=== PATIENT | male | born 1945 | race African-American/Black ===

== ENCOUNTER 2016-10-28 12:46 | Inpatient (IN) | payer MEDICARE, MEDICAID ==
[~2016-10-28] VITALS: Ht 175.3 cm; Wt 63.5 kg
[2016-10-28] MEDS ORDERED: Phenazopyridine 200mg tab ORAL ONE (13:15)
[2016-10-28] MEDS ORDERED: fentaNYL 100 mcg/2 mL IV ONE (13:15)
[2016-10-28 13:51] LABS: BASOPHILS % (AUTO) 0.7 % (0.0-2.0); EOSINOPHILS % (AUTO) 0.1 % (0.0-3.0); MEAN CORPUSCULAR HEMOGLOBIN 29.8 PG (27.0-31.0); MEAN CORPUSCULAR HGB CONC 32.7 G/DL (32.0-36.0); MEAN CORPUSCULAR VOLUME 91 FL (80-99); MEAN PLATELET VOLUME 9.5 FL (6.5-10.1); MONOCYTES % (AUTO) 10.5 % (1.0-10.0); NEUTROPHILS % (AUTO) 74.7 % (45.0-75.0); PLATELET COUNT 136 K/UL (150-450); RED BLOOD COUNT 3.69 M/UL (4.70-6.10); RED CELL DISTRIBUTION WIDTH 11.9 % (11.6-14.8); WHITE BLOOD COUNT 17.4 K/UL (4.8-10.8)
--- NOTE | 2016-10-28 13:58 | Emergency Room Report ---
History of Present Illness General Chief Complaint: Generalized Weakness Source: Patient Present Illness HPI The patient was recently started on insulin. He's not been eating and has not had an appetite he's been losing weight. Glucose has been out of control. Increased weakness with polyuria and polydipsia. In addition he has pain in his suprapubic area 7/10, constant dull pressure. He states that he has dysuria and also has pain when he moves about. He has a history of prostate cancer which had been treated with medication which was recently stopped (seemingly because cancer was under control). Scheduled to see urologist/oncologist soon. PSA fluctuating. Patient fell several days ago bruising and swelling his right elbow. Distal pain there. He taking Xarelt before that and because of bruising it was stopped. No head trauma. No xrays done. No chest pain, dyspnea, sore throat, cough. Allergies: Coded Allergies: ASPIRIN (Verified Allergy, Unknown, throws up, 10/28/16) Patient History Past Medical History: see triage record, other - prostate CA Social History: Reports: smoking Social History Narrative at home Reviewed Nursing Documentation: PMH: Agreed, PSxH: Agreed Nursing Documentation-PMH Past Medical History: No History, Except For Hx Hypertension: Yes Hx Diabetes: Yes Hx Cancer: Yes - Prostate CA Hx Cerebrovascular Accident: Yes - right eye blindness Review of Systems All Other Systems: negative except mentioned in HPI Physical Exam Vital Signs Date Time Temp Pulse Resp B/P Pulse Ox O2 Delivery O2 Flow Rate FiO2 10/28/16 13:01 98.1 95 22 109/79 100 Room Air Sp02 EP Interpretation: reviewed, normal General Appearance: well appearing, no apparent distress, GCS 15 Head: normocephalic Eyes: bilateral eye normal inspection ENT: moist mucus membranes Neck: supple Respiratory: lungs clear, normal breath sounds Cardiovascular #1: regular rate, rhythm Cardiovascular #2: 2+ radial (R) Gastrointestinal: normal bowel sounds, soft, no mass, non-distended, no guarding, no rebound, tenderness - suprapubic, no masses felt (bladder not palpated) Genitourinary: penis normal Musculoskeletal: back normal, gait/station normal, normal range of motion, swelling - R olecronon bursa Neurologic: alert, oriented x3, grossly normal Psychiatric: depressed affect Skin: warm/dry, other - ecchymoses R arm/elbow Medical Decision Making Diagnostic Impression: Primary Impression: Hyperglycemia Additional Impressions: Leukocytosis Qualified Codes: D72.829 - Elevated white blood cell count, unspecified Failure to thrive Qualified Codes: R62.7 - Adult failure to thrive Falling episodes Olecranon bursitis Qualified Codes: M70.21 - Olecranon bursitis, right elbow UTI (urinary tract infection) Qualified Codes: N30.00 - Acute cystitis without hematuria ER Course Patient presents with elevated glucose. Ddx; DKA, hyperglycemia, poor insulin compliance, occult infection, cardiac cause. Emergent evaluation with EKG, labs , CXR. Suprapubic pain needs assessment. Olecrinon could be bursitis of hematoma. Doubt cellulitis. EKG, CXR unremarkable. Not DKA. Leukocytosis, suspect occult infection - with pain suprapubic area, suspect UTI. Attempt pass layne. No urine output. Bladder scanner. Await repeat accucheck for insulin. Insulin bolus given. Repeat accucheck 147. Continue hydration. Antibiotics begun after discussion with Dr. Mera. Bladde scanner with volume = 127 ml (layne in place, no drainage - concern over proper placement). Admit tele Dr. Mera. Laboratory Tests Test 10/28/16 13:25 10/28/16 19:00 White Blood Count 17.4 K/UL (4.8-10.8) H Red Blood Count 3.69 M/UL (4.70-6.10) L Hemoglobin 11.0 G/DL (14.2-18.0) L Hematocrit 33.7 % (42.0-52.0) L Mean Corpuscular Volume 91 FL (80-99) Mean Corpuscular Hemoglobin 29.8 PG (27.0-31.0) Mean Corpuscular Hemoglobin Concent 32.7 G/DL (32.0-36.0) Red Cell Distribution Width 11.9 % (11.6-14.8) Platelet Count 136 K/UL (150-450) L Mean Platelet Volume 9.5 FL (6.5-10.1) Neutrophils (%) (Auto) 74.7 % (45.0-75.0) Lymphocytes (%) (Auto) 14.0 % (20.0-45.0) L Monocytes (%) (Auto) 10.5 % (1.0-10.0) H Eosinophils (%) (Auto) 0.1 % (0.0-3.0) Basophils (%) (Auto) 0.7 % (0.0-2.0) Prothrombin Time 11.4 SEC (9.30-11.50) Prothrombin Time INR 1.1 (0.9-1.1) PTT 26 SEC (23-33) Sodium Level 130 mEQ/L (135-145) L Potassium Level 3.3 mEQ/L (3.4-4.9) L Chloride Level 89 mEQ/L (98-107) L Carbon Dioxide Level 17 mEQ/L (20-30) L Anion Gap 24 (5-15) H Blood Urea Nitrogen 5 mg/dL (7-23) L Creatinine 0.8 mg/dL (0.7-1.2) Estimate Glomerular Filtration Rate > 60 mL/min (>60) Glucose Level 388 mg/dL (74-106) H Calcium Level 8.9 mg/dL (8.6-10.2) Magnesium Level 1.3 mg/dL (1.7-2.5) L Total Bilirubin 2.3 mg/dL (0.0-1.2) H Direct Bilirubin 1.1 mg/dL (0.1-0.3) H Aspartate Amino Transferase (AST) 49 U/L (5-40) H Alanine Aminotransferase (ALT) 19 U/L (3-41) Alkaline Phosphatase 77 U/L (40-129) Total Protein 6.9 g/dL (6.6-8.7) Albumin 2.9 g/dL (3.5-5.2) L Globulin 4.0 g/dL Albumin/Globulin Ratio 0.7 (1.0-2.7) L Lipase 61 U/L (< 60) H Acetone Level Negative (NEGATIVE) Urine Color [place] Urine Appearance Slightly cloudy Urine pH 5 (4.5-8.0) Urine Specific [place] 1.015 (1.005-1.035) Urine Protein 3+ (NEGATIVE) H Urine Glucose (UA) 3+ (NEGATIVE) H Urine Ketones 3+ (NEGATIVE) H Urine Occult Blood 3+ (NEGATIVE) H Urine Nitrite Positive (NEGATIVE) H Urine Bilirubin 2+ (NEGATIVE) H Urine Ictotest Negative Urine Urobilinogen 8 MG/DL (0.0-1.0) H Urine Leukocyte Esterase 3+ (NEGATIVE) H Urine RBC 5-10 /HPF (0 - 0) H Urine WBC 10-15 /HPF (0 - 0) H Urine Squamous Epithelial Cells None /LPF (NONE/OCC) Urine Amorphous Sediment Few /LPF (NONE) H Urine Bacteria Moderate /HPF (NONE) H Urine Yeast Few /HPF (NONE) H EKG Diagnostic Results Rate: normal Rhythm: NSR ST Segments: no acute changes Rhythm Strip Diag. Results EP Interpretation: yes Rhythm: NSR, no PVC's, no ectopy Chest X-Ray Diagnostic Results EP Interpretation: Yes Findings: no consolidation, no effusion, no pneumothorax, no acute cardiopulmonary disease, other - increased R hilum Number of Views: 1 Last Vital Signs Date Time Temp Pulse Resp B/P Pulse Ox O2 Delivery O2 Flow Rate FiO2 10/29/16 04:00 74 10/29/16 04:00 97.4 19 98/61 96 Room Air Status: improved Disposition: ADMITTED INPATIENT Condition: Serious Referrals: ASHLEY MERA (PCP) Dustin Adams M.D. October 28, 2016 13:58
[2016-10-28 14:05] LABS: INR 1.1 (0.9-1.1); PROTHROMBIN TIME 11.4 SEC (9.30-11.50)
--- NOTE | 2016-10-28 14:07 | Diagnostic Imaging Report ---
Indication: TRAUMA, pain Technique: One view of the chest Comparison: none Findings: There is slight blunting of left costophrenic sulcus. SPECT is on the basis of some tenting of the diaphragm but small effusion not completely excludable. Lungs and pleural spaces are otherwise clear. Heart size is normal. There is questionably some irregularity of one or more lower left lateral ribs Impression: Doubt acute pulmonary process. Cannot rule out small left-sided pleural effusion Questional slight irregularity of left lower lateral ribs, fracture not excludable.: Clinical findings
--- NOTE | 2016-10-28 14:09 | Diagnostic Imaging Report ---
Indications:TRAUMA Technique: Three or 4 views of the right elbow Comparison: None Findings:There is a large area of soft tissue swelling dorsally on the elbow. No definite acute fracture. No dislocation. No definite effusion. Impression:Evidence of subcutaneous soft tissue injury. No acute bony trauma
[2016-10-28 14:11] LABS: ALANINE AMINOTRANSFERASE 19 U/L (3-41); ALBUMIN/GLOBULIN RATIO 0.7 (1.0-2.7); ANION GAP 24 (5-15); ASPARTATE AMINO TRANSFERASE 49 U/L (5-40); CALCIUM 8.9 mg/dL (8.6-10.2); CARBON DIOXIDE 17 mEQ/L (20-30); CHLORIDE 89 mEQ/L (98-107); CREATININE 0.8 mg/dL (0.7-1.2); GLOMERULAR FILTRATION RATE > 60 mL/min (>60); HEMOLYSIS 14; LIPASE 61 U/L (< 60); MAGNESIUM 1.3 mg/dL (1.7-2.5); POTASSIUM 3.3 mEQ/L (3.4-4.9); SODIUM 130 mEQ/L (135-145); TOTAL PROTEIN 6.9 g/dL (6.6-8.7)
[2016-10-28] MEDS ORDERED: BRIMONIDINE TART5 ML BOTH EYES ×2 (14:12→19:00)
[2016-10-28] MEDS ORDERED: OMEPRAZOLE20 M2 ORAL (14:12)
[2016-10-28] MEDS ORDERED: XALATAN2.5 ML LEFT EYE (14:12)
[2016-10-28] MEDS ORDERED: ZOCOR20 M1 ORAL (14:12)
[2016-10-28] MEDS ORDERED: ZOLPIDEM TARTRA10 MG ORAL ×2 (14:12→19:07)
[2016-10-28] MEDS ORDERED: XARELTO10 MG ORAL (14:12)
[2016-10-28] MEDS ORDERED: LORAZEPAM1 MG ORAL ×2 (14:12→19:07)
[2016-10-28] MEDS ORDERED: AMLODIPINE BESY10 MG ORAL (14:12)
[2016-10-28] MEDS ORDERED: TRUSOPT10 ML BOTH EYES ×2 (14:12→19:02)
[2016-10-28 14:36] LABS: BILIRUBIN,DIRECT 1.1 mg/dL (0.1-0.3)
[2016-10-28 14:47] VITALS: BP 101/68
[2016-10-28] MEDS ORDERED: Piperacillin/Tazobactam 3.375 GM in NS 110 ML IVPB ONE (15:45)
[2016-10-28] MEDS ORDERED: HUMULIN R100 UNIT/1 SUBQ (15:56)
[2016-10-28] MEDS ORDERED: KCl 10% 40mEq/30ml liquid ORAL STA (15:59)
[2016-10-28] MEDS ORDERED: Zosyn 3.375gm inj ONE (16:00)
[2016-10-28 16:28] VITALS: BP 112/61
[2016-10-28] MEDS ORDERED: Milk of Magnesia 30ml Ud ORAL PRN (18:00)
[2016-10-28] MEDS: NS w/KCl 20mEq 1,000 ML IV SCH (18:39)
[2016-10-28] MEDS ORDERED: BRIMONIDINE TART5 ML (18:41)
[2016-10-28] MEDS ORDERED: TRUSOPT10 ML (18:42)
[2016-10-28] MEDS ORDERED: LATANOPROST2.5 ML (18:43)
[2016-10-28 18:50] VITALS: BP 98/59
[2016-10-28] MEDS ORDERED: VITAMIN D250000 UNI1 ORAL (19:03)
[2016-10-28] MEDS ORDERED: LATANOPROST2.5 ML LEFT EYE (19:03)
[2016-10-28] MEDS ORDERED: METFORMIN HCL500 M1 ORAL (19:04)
[2016-10-28] MEDS ORDERED: TAMSULOSIN HCL0.4 MG ORAL (19:05)
[2016-10-28] MEDS ORDERED: XARELTO20 MG ORAL (19:10)
[2016-10-28] MEDS ORDERED: QVAR7.3 GM INH (19:10)
[2016-10-28 20:00] VITALS: BP 115/65
[2016-10-28] MEDS: HYDROmorphone 1mg/ml Carpuject IVP PRN (20:22)
[2016-10-28] MEDS: Zolpidem 5mg tab ORAL PRN (21:35)
[2016-10-28] MEDS: Cosopt Opth Soln 10 mL Btl BOTH EYES SCH (21:37)
[2016-10-28] MEDS: NovoLOG Insulin Flexpen SUBQ SCH (21:39)
[2016-10-28] MEDS: Brimonidine 0.2% Opth Sol BOTH EYES SCH (21:43)
[2016-10-28] MEDS ORDERED: Piperacillin/Tazobactam 3.375 GM in D5W 110 ML IVPB SCH (22:00)
[2016-10-28 22:01] LABS: APPEARANCE,URINE SLIGHTLY CLOUDY; KETONES,URINE 3+ (NEGATIVE); LEUKOCYTE ESTERASE ,URINE 3+ (NEGATIVE); NITRITE,URINE POSITIVE (NEGATIVE); PH,URINE 5 (4.5-8.0); PROTEIN,URINE 3+ (NEGATIVE); UROBILINOGEN,URINE 8 MG/DL (0.0-1.0)
[2016-10-28 22:07] LABS: ICTOTEST NEGATIVE
[2016-10-28 22:29] LABS: AMORPHOUS SEDIMENT,UR FEW /LPF; BACTERIA,URINE MODERATE /HPF
[2016-10-28 22:30] LABS: YEAST,URINE FEW /HPF
--- NOTE | 2016-10-28 23:49 | Consultation ---
DATE OF CONSULTATION: 10/28/2016 CARDIOLOGY CONSULTATION REQUESTING PHYSICIAN: Erick Rose M.D. REASON FOR CONSULTATION: Hypotension. HISTORY OF PRESENT ILLNESS: This is a 69-year-old white male with history of insulin-requiring diabetes mellitus. He has had several days of declining appetite, weight loss, and suprapubic pain. He has had dysuria. He has been weak, lethargic. He has been dizzy. He has fallen several times. He injured his right elbow. He was seen in Dr. Rose's office today and concern prompted hospitalization. The patient was seen in the emergency room and several abnormal studies have resulted in hospitalization. I have been asked to address his cardiovascular status. PAST MEDICAL HISTORY: 1. Cerebrovascular disease with history of cerebrovascular accident. 2. Right eye blindness. 3. Prostate cancer. 4. Insulin-requiring diabetes mellitus. 5. Hypertension with hypertensive heart disease. 6. Coronary artery disease. 7. Paroxysmal atrial fibrillation. 8. History of DVT. MEDICATIONS: Prior to admission, reviewed and reconciled. ALLERGIES: Aspirin. SOCIAL HISTORY: No active smoking, alcohol, or substance abuse. FAMILY HISTORY: Noncontributory. REVIEW OF SYSTEMS: No fevers or chills. He is blind in the right eye. He is hard of hearing. No cough or sputum production. He has a history of coronary artery disease. He has had atrial fibrillation and he had DVT in the past. He has had a prior stroke. He has not noted any change in bowel habits. He does have dysuria. There is a history of rostate cancer. There is no history of thyroid disorder. He was recently started on insulin due to uncontrolled blood glucose levels. He has been on anti-lipid therapy in the past. PHYSICAL EXAMINATION: VITAL SIGNS: Blood pressure 109/79, pulse 95, respirations 22, and afebrile. HEENT: Normocephalic and atraumatic. Conjunctivae are pink. Oropharynx clear. Mucous membrane is dry. NECK: Supple. LUNGS: With coarse breath sounds. No wheezing. CARDIAC: Regular rhythm and rate. Normal S1 and S2 with a fourth heart sound. ABDOMEN: Soft, mildly tender in the suprapubic region. No guarding or rebound. EXTREMITIES: No edema. EKG sinus rhythm, no acute abnormalities. Chest x-ray with fullness in the right hilar area. Otherwise, no acute process. LABORATORY DATA: Sodium 130, potassium 3.3, chloride 89, bicarbonate 17, BUN 5, creatinine 0.8. Magnesium 1.3. Albumin 2.9. Lipase is 61, white count 17.4, and hemoglobin 11. IMPRESSION: 1. Sepsis, probable urinary tract infection. 2. Hypovolemia, dehydration, and shock. 3. Hyponatremia. 4. Leukocytosis. 5. Hypokalemia. 6. Insulin-requiring diabetes out of control. 7. Hypomagnesemia. 8. Moderate protein-calorie malnutrition. PLAN: 1. Panculture. 2. Broad-spectrum antibiotics. 3. Isotonic hydration. 4. Potassium replacement. 5. IV magnesium replacement. 6. Nutritional support with protein supplement. 7. DVT prophylaxis. 8. Check urine studies. 9. Continue full anticoagulation with Rivaroxaban. 10. Titrate cardiovascular regimen based on clinical parameters. 11. We will hold parameters in place for low range blood pressure readings. Dustin Henao M.D. DR: Louann JOB#: [id number] CC:
[2016-10-29] VITALS: BP 101/67
[2016-10-29] MEDS: HYDROmorphone 1mg/ml Carpuject IVP PRN ×5 (01:52→21:19)
[2016-10-29] MEDS: Piperacillin/Tazobactam 3.375 GM in D5W 110 ML IVPB SCH ×3 (03:13→17:16)
[2016-10-29 04:00] VITALS: BP 98/61
[2016-10-29] MEDS: NS w/KCl 20mEq 1,000 ML IV SCH ×2 (05:00→14:47)
[2016-10-29] MEDS: Brimonidine 0.2% Opth Sol BOTH EYES SCH ×3 (06:00→22:00)
[2016-10-29] MEDS: NovoLOG Insulin Flexpen SUBQ SCH ×4 (06:23→21:00)
[2016-10-29] MEDS ORDERED: NovoLOG Insulin Flexpen SUBQ SCH (06:30)
[2016-10-29 08:00] VITALS: BP 115/58
[2016-10-29 08:14] LABS: BASOPHILS % (AUTO) 0.8 % (0.0-2.0); EOSINOPHILS % (AUTO) 0.3 % (0.0-3.0); LYMPHOCYTES % (AUTO) 10.7 % (20.0-45.0); MEAN CORPUSCULAR HEMOGLOBIN 32.9 PG (27.0-31.0); MEAN CORPUSCULAR HGB CONC 34.8 G/DL (32.0-36.0); MEAN CORPUSCULAR VOLUME 95 FL (80-99); MEAN PLATELET VOLUME 9.3 FL (6.5-10.1); MONOCYTES % (AUTO) 7.7 % (1.0-10.0); NEUTROPHILS % (AUTO) 80.5 % (45.0-75.0); PLATELET COUNT 121 K/UL (150-450); RED BLOOD COUNT 2.97 M/UL (4.70-6.10); RED CELL DISTRIBUTION WIDTH 12.2 % (11.6-14.8); WHITE BLOOD COUNT 13.4 K/UL (4.8-10.8)
[2016-10-29 08:24] LABS: ALANINE AMINOTRANSFERASE 16 U/L (3-41); ALBUMIN/GLOBULIN RATIO 0.7 (1.0-2.7); ANION GAP 18 (5-15); ASPARTATE AMINO TRANSFERASE 43 U/L (5-40); CALCIUM 8.2 mg/dL (8.6-10.2); CARBON DIOXIDE 19 mEQ/L (20-30); CHLORIDE 97 mEQ/L (98-107); CREATININE 0.6 mg/dL (0.7-1.2); GLOMERULAR FILTRATION RATE > 60 mL/min (>60); HEMOLYSIS 3; MAGNESIUM 2.5 mg/dL (1.7-2.5); POTASSIUM 2.8 mEQ/L (3.4-4.9); SODIUM 134 mEQ/L (135-145); TOTAL PROTEIN 5.9 g/dL (6.6-8.7)
[2016-10-29] MEDS: Cosopt Opth Soln 10 mL Btl BOTH EYES SCH ×2 (08:58→17:16)
[2016-10-29] MEDS: Levemir Flexpen SUBQ SCH ×2 (11:23→21:17)
[2016-10-29 12:00] VITALS: BP 109/62
[2016-10-29 14:17] LABS: TROPONIN I < 0.30 ng/mL (<=0.30)
[2016-10-29 16:00] VITALS: BP 101/62
--- NOTE | 2016-10-29 16:01 | Cardiology Report ---
APPROVED REPORT EKG Measurement Heart [id number] Normal sinus rhythm Septal infarct, age undetermined Abnormal ECG
--- NOTE | 2016-10-29 16:58 | History and Physical Report ---
DATE OF ADMISSION: 10/28/2016 CHIEF COMPLAINT: Diabetes out of control and recent stroke. HISTORY OF PRESENT ILLNESS: The patient is a pleasant 71-year-old male. He has a history of cholecystectomy, hypertension, coronary artery disease, diabetes, stroke, DVT, and paroxysmal atrial fibrillation. He presented to the office with diabetes out of control with sugars in the 400 range. He was weak, dizzy, and dehydrated. He was also seen at [facility] where he was recently diagnosed with a small stroke in the right eye. In light of the patient's poorly controlled sugars, he is now admitted for further evaluation and care. He has had some dysuria and shortness of breath as well as some mild chest pain. PAST MEDICAL HISTORY: As above. PAST SURGICAL HISTORY: As above. CURRENT MEDICATIONS: Reconciled and reviewed. ALLERGIES: Aspirin. FAMILY HISTORY: Noncontributory. SOCIAL HISTORY: Negative for ethanol or drugs. The patient does smoke. PHYSICAL EXAMINATION: VITAL SIGNS: Temperature 98.2, blood pressure 98/59, pulse of 88, and respirations 20. GENERAL: The patient is a well-developed male, in no apparent distress. NECK: Supple. HEART: Regular rate and rhythm. LUNGS: Clear. ABDOMEN: Soft. EXTREMITIES: No clubbing, cyanosis, or edema. LABORATORY DATA: Labs show sodium 130, potassium 3.3, chloride 89, bicarbonate 17, BUN of 5, glucose of 388. Magnesium of 1.3. Total bilirubin 2.3. Natriuretic peptide level is 145. UA showed 10 to 15 WBCs. ASSESSMENT: This is a pleasant male who is admitted with multiple problems including, 1. Diabetes out of control, possible mild diabetic ketoacidosis. 2. Hypotension. 3. Dehydration. 4. Acute renal failure. 5. Possible sepsis. 6. Urinary tract infection. 7. Deep venous thrombosis. 8. Atrial fibrillation. 9. Hypertension. 10. Recent stroke. PLAN: 1. IV hydration. 2. Titrate insulin regimen. 3. Empiric antibiotic therapy for UTI. 4. Cardiology and Neurology consultations for workup of the patient's recent stroke. 5. Check a duplex on the legs. 6. Monitor on telemetry for arrhythmia for 24 to 48 hours. Erick Rose M.D. DR: CHINMAY JOB#: [id number] CC:
[2016-10-29] MEDS: Xarelto 10mg tab ORAL SCH (17:16)
[2016-10-29] MEDS ORDERED: NS 275ml ONE (18:10)
[2016-10-29] MEDS ORDERED: Tubing IV Secondary IV ONE (18:10)
[2016-10-29 20:00] VITALS: BP 100/61
[2016-10-30] VITALS: BP 101/63
[2016-10-30] MEDS: Piperacillin/Tazobactam 3.375 GM in D5W 110 ML IVPB SCH ×3 (01:12→17:35)
[2016-10-30] MEDS: NS w/KCl 20mEq 1,000 ML IV SCH ×2 (01:12→11:12)
--- NOTE | 2016-10-30 02:38 | Progress Note ---
DATE: 10/29/2016 CARDIOLOGY PROGRESS NOTE: SUBJECTIVE: The patient is more alert. He continues to be withdrawn and weak however. His appetite is slightly better. He continues to have frequency. OBJECTIVE: VITAL SIGNS: Blood pressure is 115/58, pulse rate 73, respiratory rate 17, and afebrile. NECK: Supple. LUNGS: Clear. CARDIAC: Regular rhythm and rate. Normal S1 and S2 with a fourth heart sound. ABDOMEN: Soft. EXTREMITIES: No edema. LABORATORY DATA: White count is 13.4 and hemoglobin 9.8. Troponin is negative. Pro-natriuretic peptide is 145. Albumin is 2.5. Sodium is 134, potassium 3.8, bicarbonate 19, BUN 3, and creatinine 0.6. IMPRESSION: 1. Uncontrolled diabetes. 2. Metabolic acidosis. 3. Shock. 4. Hypovolemia. 5. Sepsis. 6. Urinary tract infection. 7. Deep venous thrombosis. 8. Paroxysmal atrial fibrillation. 9. Toxic and metabolic encephalopathy. 10. History of hypertension. 11. Ischemic cardiomyopathy. 12. Paroxysmal ventricular ectopy. PLAN: 1. Hydration. 2. Antibiotics. 3. Insulin coverage. 4. Hold antihypertensive. 5. Deep venous thrombosis and stress ulcer prophylaxis. 6. Full anticoagulation with Xarelto. Dustin Henao M.D. DR: Bebe JOB#: [id number] CC:
[2016-10-30] MEDS: HYDROmorphone 1mg/ml Carpuject IVP PRN ×3 (03:33→20:32)
[2016-10-30 04:04] VITALS: BP 98/64
[2016-10-30] MEDS: Brimonidine 0.2% Opth Sol BOTH EYES SCH ×3 (06:00→22:13)
[2016-10-30] MEDS: NovoLOG Insulin Flexpen SUBQ SCH ×4 (06:30→22:11)
[2016-10-30 08:10] LABS: BASOPHILS % (AUTO) 0.3 % (0.0-2.0); EOSINOPHILS % (AUTO) 0.3 % (0.0-3.0); LYMPHOCYTES % (AUTO) 17.9 % (20.0-45.0); MEAN CORPUSCULAR HEMOGLOBIN 30.3 PG (27.0-31.0); MEAN CORPUSCULAR HGB CONC 32.8 G/DL (32.0-36.0); MEAN CORPUSCULAR VOLUME 93 FL (80-99); MEAN PLATELET VOLUME 8.3 FL (6.5-10.1); MONOCYTES % (AUTO) 8.7 % (1.0-10.0); NEUTROPHILS % (AUTO) 72.8 % (45.0-75.0); PLATELET COUNT 154 K/UL (150-450); RED BLOOD COUNT 3.05 M/UL (4.70-6.10); RED CELL DISTRIBUTION WIDTH 12.4 % (11.6-14.8); WHITE BLOOD COUNT 12.2 K/UL (4.8-10.8)
[2016-10-30 08:29] LABS: ALANINE AMINOTRANSFERASE 16 U/L (3-41); ALBUMIN/GLOBULIN RATIO 0.6 (1.0-2.7); ANION GAP 16 (5-15); ASPARTATE AMINO TRANSFERASE 50 U/L (5-40); CARBON DIOXIDE 19 mEQ/L (20-30); CHLORIDE 102 mEQ/L (98-107); CREATININE 0.6 mg/dL (0.7-1.2); GLOMERULAR FILTRATION RATE > 60 mL/min (>60); HEMOLYSIS 3; MAGNESIUM 1.8 mg/dL (1.7-2.5); POTASSIUM 3.6 mEQ/L (3.4-4.9); SODIUM 137 mEQ/L (135-145); TOTAL PROTEIN 5.8 g/dL (6.6-8.7)
[2016-10-30 08:44] VITALS: BP 95/57
[2016-10-30 09:08] LABS: BILIRUBIN,DIRECT 0.6 mg/dL (0.1-0.3)
[2016-10-30] MEDS: Cosopt Opth Soln 10 mL Btl BOTH EYES SCH ×2 (09:15→17:36)
[2016-10-30] MEDS: Levemir Flexpen SUBQ SCH ×2 (09:19→22:12)
[2016-10-30 12:04] VITALS: BP 99/58
--- NOTE | 2016-10-30 12:37 | Diagnostic Imaging Report ---
APPROVED REPORT CPT Code: 06392 Vascular Symptoms Dizziness and Vertigo CAROTID (BILATERAL) - Imaging reveals no significant plaque within the right and left extracranial carotid arteries. The Doppler spectral flow analysis is within normal limits throughout the extracranial carotid arteries bilaterally. VERTEBRAL- The vertebral arteries are within normal limits.
--- NOTE | 2016-10-30 13:45 | General Progress Note ---
Assessment/Plan Problem List: (1) DKA (diabetic ketoacidoses) ICD Codes: E13.10 - Other specified diabetes mellitus with ketoacidosis without coma SNOMED: 19300439, 754408448 (2) Sepsis ICD Codes: A41.9 - Sepsis, unspecified organism SNOMED: 73773225 (3) Hypotension ICD Codes: I95.9 - Hypotension, unspecified SNOMED: 65873380 (4) UTI (urinary tract infection) ICD Codes: N39.0 - Urinary tract infection, site not specified SNOMED: 68271151 Qualifiers: Qualified Codes: N30.00 - Acute cystitis without hematuria Status: stable, progressing Assessment/Plan decrease ivf follow up abd chandu abx monitor bs to med surg Subjective ROS Limited/Unobtainable: No Constitutional: Reports: malaise, weakness HEENT: Reports: no symptoms Cardiovascular: Reports: no symptoms Respiratory: Reports: no symptoms Gastrointestinal/Abdominal: Reports: abdominal pain Genitourinary: Reports: no symptoms Neurologic/Psychiatric: Reports: no symptoms Endocrine: Reports: no symptoms Hematologic/Lymphatic: Reports: no symptoms Allergies: Coded Allergies: ASPIRIN (Verified Allergy, Unknown, throws up, 10/28/16) All Systems: reviewed and negative except above Subjective no events. feeling "a little better." BS improving s/p abd chandu silll with groin pain Objective Last 24 Hour Vital Signs Date Time Temp Pulse Resp B/P Pulse Ox O2 Delivery O2 Flow Rate FiO2 10/30/16 12:04 98.2 79 18 99/58 99 Room Air 10/30/16 09:00 81 95/57 10/30/16 08:44 97.9 81 18 95/57 100 Room Air 10/30/16 04:04 99.1 84 20 98/64 94 Room Air 10/30/16 04:00 80 10/30/16 00:00 97.9 82 20 101/63 93 Room Air 10/30/16 00:00 77 10/29/16 20:00 74 10/29/16 20:00 98.6 75 20 100/61 96 Room Air 10/29/16 16:00 76 10/29/16 16:00 96.6 75 17 101/62 93 Room Air Intake and Output 10/29/16 10/30/16 19:00 07:00 Intake Total 1515.0 ml 1292.5 ml Output Total 150 ml Balance 1515.0 ml 1142.5 ml Intake Oral 350 ml IV Total 1165.0 ml 1292.5 ml Output Urine Total 150 ml # Voids 2 2 Laboratory Tests 10/30/16 05:43: White Blood Count 12.2H, Red Blood Count 3.05L, Hemoglobin 9.3L, Hematocrit 28.3L, Mean Corpuscular Volume 93, Mean Corpuscular Hemoglobin 30.3, Mean Corpuscular Hemoglobin Concent 32.8, Red Cell Distribution Width 12.4, Platelet Count 154, Mean Platelet Volume 8.3, Neutrophils (%) (Auto) 72.8, Lymphocytes (% ) (Auto) 17.9L, Monocytes (%) (Auto) 8.7, Eosinophils (%) (Auto) 0.3, Basophils (%) (Auto) 0.3, Sodium Level 137, Potassium Level 3.6, Chloride Level 102, Carbon Dioxide Level 19L, Anion Gap 16H, Blood Urea Nitrogen 3L, Creatinine 0.6L , Estimat Glomerular Filtration Rate > 60, Glucose Level 126#H, Hemoglobin A1c 9.9H, Calcium Level 8.0L, Magnesium Level 1.8, Total Bilirubin 1.4H, Direct Bilirubin 0.6H, Aspartate Amino Transf (AST/SGOT) 50H, Alanine Aminotransferase (ALT/SGPT) 16, Alkaline Phosphatase 77, Pro-B-Type Natriuretic Peptide 539H, Total Protein 5.8L, Albumin 2.2L, Globulin 3.6, Albumin/Globulin Ratio 0.6L Height (Feet): 5 Height (Inches): 9.00 Weight (Pounds): 140 General Appearance: WD/WN, alert Neck: supple Cardiovascular: regular rhythm Respiratory/Chest: normal breath sounds Abdomen: normal bowel sounds, non tender, soft, no organomegaly Edema: no edema noted Arm (L), no edema noted Arm (R), no edema noted Leg (L), no edema noted Leg (R), no edema noted Pedal (L), no edema noted Pedal (R), no edema noted Generalized ASHLEY MERA October 30, 2016 13:45
[2016-10-30] MEDS ORDERED: Fluconazole 100mg tab ORAL SCH (15:00)
[2016-10-30 16:12] VITALS: BP 109/67
[2016-10-30] MEDS: Xarelto 10mg tab ORAL SCH (17:36)
[2016-10-30] MEDS ORDERED: NS w/KCl 20mEq 1,000 ML IV SCH (19:00)
[2016-10-30 20:00] VITALS: BP 136/78
[2016-10-30] MEDS: Zolpidem 5mg tab ORAL PRN (22:15)
[2016-10-31] VITALS (8 sets, daily range): BP systolic 90–122; BP diastolic 55–73
--- NOTE | 2016-10-31 00:38 | Progress Note ---
DATE: 10/30/2016 CARDIOLOGY PROGRESS NOTE SUBJECTIVE: The patient remains on IV fluids, insulin and antimicrobials. Blood pressure parameters remained tenuous. He has not had chest pain or shortness of breath. He continues to feel weak, but is somewhat better than yesterday. He has suprapubic pain. OBJECTIVE: VITAL SIGNS: Blood pressure 95/57, heart rate 81, respirations 18, and afebrile. T-max is 99.1. NECK: Supple. Oropharynx is clear. No thrush. LUNGS: Clear. CARDIAC: Regular rate and rhythm. Normal S1 and S2 with a fourth heart sound. ABDOMEN: Soft. Mildly tender in the suprapubic region. No guarding or rebound. EXTREMITIES: No edema. LABORATORY AND DIAGNOSTIC DATA: Sodium 137, potassium 3.6, bicarbonate 19, BUN 3, creatinine 0.6, and glucose 126. Pro-natriuretic peptide is 539. Albumin is 2.2. White count 12.2 and hemoglobin 9.3. Carotid duplex revealed mild plaquing. Urine culture is positive for yeast. IMPRESSION: 1. Acute myocardial ischemia. 2. Fungal cystitis. 3. Sepsis. 4. Shock. 5. Diabetic ketoacidosis. 6. Dehydration. 7. Hypovolemia. 8. Paroxysmal atrial fibrillation. 9. History of deep venous thrombosis. 10. Metabolic acidosis. PLAN: 1. Continue hydration. 2. Antifungal therapy. 3. Insulin titration. 4. Continue to hold antihypertensives. 5. Continue rivaroxaban for anticoagulation. Dustin Henao M.D. DR: CINDY JOB#: [id number] CC:
[2016-10-31] MEDS: Piperacillin/Tazobactam 3.375 GM in D5W 110 ML IVPB SCH ×3 (01:00→17:06)
[2016-10-31] MEDS: HYDROmorphone 1mg/ml Carpuject IVP PRN ×4 (06:15→18:52)
[2016-10-31] MEDS: Brimonidine 0.2% Opth Sol BOTH EYES SCH ×3 (06:22→22:14)
[2016-10-31] MEDS ORDERED: Milk of Magnesia 30ml Ud ORAL PRN (07:30)
[2016-10-31] MEDS: NS w/KCl 20mEq 1,000 ML IV SCH ×2 (08:00→17:18)
[2016-10-31] MEDS ORDERED: HYDROmorphone 1mg/ml Carpuject IVP PRN (08:15)
--- NOTE | 2016-10-31 08:20 | General Progress Note ---
Assessment/Plan Problem List: (1) DKA (diabetic ketoacidoses) ICD Codes: E13.10 - Other specified diabetes mellitus with ketoacidosis without coma SNOMED: 33629737, 242047584 (2) Sepsis ICD Codes: A41.9 - Sepsis, unspecified organism SNOMED: 78102604 (3) Hypotension ICD Codes: I95.9 - Hypotension, unspecified SNOMED: 57729466 (4) UTI (urinary tract infection) ICD Codes: N39.0 - Urinary tract infection, site not specified SNOMED: 16991184 Qualifiers: Qualified Codes: N30.00 - Acute cystitis without hematuria Status: stable, progressing Assessment/Plan decrease ivf follow up abd chandu ct abd ordered abx adjusted monitor bs to med surg monitor labs pain rx and antiemetics Subjective ROS Limited/Unobtainable: No Constitutional: Reports: malaise, weakness HEENT: Reports: no symptoms Cardiovascular: Reports: no symptoms Respiratory: Reports: no symptoms Gastrointestinal/Abdominal: Reports: abdominal pain, poor appetite Genitourinary: Reports: no symptoms Neurologic/Psychiatric: Reports: no symptoms Endocrine: Reports: no symptoms Hematologic/Lymphatic: Reports: anemia Allergies: Coded Allergies: ASPIRIN (Verified Allergy, Unknown, throws up, 10/28/16) All Systems: reviewed and negative except above Subjective still with abd pain/groin pain. poor appetite. no vomiting. Objective Last 24 Hour Vital Signs Date Time Temp Pulse Resp B/P Pulse Ox O2 Delivery O2 Flow Rate FiO2 10/31/16 04:00 98.2 85 18 112/59 96 Room Air 10/31/16 04:00 81 10/31/16 00:00 98.2 83 18 100/65 95 Nasal Cannula 2.0 10/31/16 00:00 81 10/30/16 20:00 98.0 65 18 136/78 94 Nasal Cannula 2.0 10/30/16 16:12 98.0 83 18 109/67 95 Room Air 10/30/16 12:04 98.2 79 18 99/58 99 Room Air 10/30/16 12:00 81 10/30/16 09:00 81 95/57 10/30/16 08:44 97.9 81 18 95/57 100 Room Air Intake and Output 10/30/16 10/31/16 19:00 07:00 Intake Total 1890.0 ml 100 ml Output Total 700 ml 400 ml Balance 1190.0 ml -300 ml Intake Oral 480 ml IV Total 1410.0 ml 100 ml Output Urine Total 700 ml 400 ml Height (Feet): 5 Height (Inches): 9.00 Weight (Pounds): 140 Objective General Appearance: WD/WN, alert Neck: supple Cardiovascular: regular rhythm Respiratory/Chest: normal breath sounds Abdomen: normal bowel sounds, non tender, soft, no organomegaly Edema: no edema noted Arm (L), no edema noted Arm (R), no edema noted Leg (L), no edema noted Leg (R), no edema noted Pedal (L), no edema noted Pedal (R), no edema noted Generalized ASHLEY MERA October 31, 2016 08:20
[2016-10-31] MEDS ORDERED: Levemir Flexpen SUBQ SCH (09:00)
[2016-10-31] MEDS: Fluconazole 100mg tab ORAL SCH (09:14)
[2016-10-31] MEDS: Cosopt Opth Soln 10 mL Btl BOTH EYES SCH ×2 (09:40→17:29)
[2016-10-31] MEDS: Levemir Flexpen SUBQ SCH ×2 (09:41→21:03)
[2016-10-31 10:22] LABS: BASOPHILS % (AUTO) 0.6 % (0.0-2.0); EOSINOPHILS % (AUTO) 0.2 % (0.0-3.0); MEAN CORPUSCULAR HGB CONC 32.3 G/DL (32.0-36.0); MEAN CORPUSCULAR VOLUME 96 FL (80-99); MEAN PLATELET VOLUME 9.2 FL (6.5-10.1); MONOCYTES % (AUTO) 8.9 % (1.0-10.0); NEUTROPHILS % (AUTO) 71.2 % (45.0-75.0); PLATELET COUNT 173 K/UL (150-450); RED BLOOD COUNT 2.83 M/UL (4.70-6.10); RED CELL DISTRIBUTION WIDTH 12.8 % (11.6-14.8); WHITE BLOOD COUNT 12.1 K/UL (4.8-10.8)
[2016-10-31 10:43] LABS: MAGNESIUM 1.4 mg/dL (1.7-2.5); PHOSPHORUS 1.4 mg/dL (2.5-4.8)
[2016-10-31 10:44] LABS: ALANINE AMINOTRANSFERASE 13 U/L (3-41); ALBUMIN/GLOBULIN RATIO 0.6 (1.0-2.7); ANION GAP 14 (5-15); ASPARTATE AMINO TRANSFERASE 37 U/L (5-40); CALCIUM 7.9 mg/dL (8.6-10.2); CARBON DIOXIDE 20 mEQ/L (20-30); CHLORIDE 103 mEQ/L (98-107); CREATININE 0.5 mg/dL (0.7-1.2); GLOMERULAR FILTRATION RATE > 60 mL/min (>60); HEMOLYSIS 4; POTASSIUM 3.8 mEQ/L (3.4-4.9); SODIUM 137 mEQ/L (135-145); TOTAL PROTEIN 5.3 g/dL (6.6-8.7)
[2016-10-31 11:13] LABS: BILIRUBIN,DIRECT 0.6 mg/dL (0.1-0.3)
[2016-10-31] MEDS: NovoLOG Insulin Flexpen SUBQ SCH ×3 (11:30→21:00)
[2016-10-31] MEDS: Xarelto 10mg tab ORAL SCH (17:06)
[2016-10-31] MEDS: Phospha 250 Neutral tab ORAL SCH (17:29)
[2016-10-31] MEDS ORDERED: Zolpidem 5mg tab ORAL PRN (21:00)
[2016-11-01] VITALS (7 sets, daily range): BP systolic 86–116; BP diastolic 54–74
[2016-11-01] MEDS: Piperacillin/Tazobactam 3.375 GM in D5W 110 ML IVPB SCH ×2 (01:29→08:39)
[2016-11-01] MEDS: Brimonidine 0.2% Opth Sol BOTH EYES SCH ×3 (05:54→21:22)
[2016-11-01] MEDS: HYDROmorphone 1mg/ml Carpuject IVP PRN ×4 (06:28→18:35)
[2016-11-01] MEDS: NovoLOG Insulin Flexpen SUBQ SCH ×4 (06:30→21:00)
[2016-11-01 06:52] LABS: BASOPHILS % (AUTO) 0.5 % (0.0-2.0); EOSINOPHILS % (AUTO) 0.3 % (0.0-3.0); LYMPHOCYTES % (AUTO) 19.1 % (20.0-45.0); MEAN CORPUSCULAR HEMOGLOBIN 30.7 PG (27.0-31.0); MEAN CORPUSCULAR HGB CONC 32.3 G/DL (32.0-36.0); MEAN CORPUSCULAR VOLUME 95 FL (80-99); MEAN PLATELET VOLUME 8.3 FL (6.5-10.1); MONOCYTES % (AUTO) 8.1 % (1.0-10.0); NEUTROPHILS % (AUTO) 71.9 % (45.0-75.0); PLATELET COUNT 172 K/UL (150-450); RED BLOOD COUNT 2.69 M/UL (4.70-6.10); RED CELL DISTRIBUTION WIDTH 13.8 % (11.6-14.8); WHITE BLOOD COUNT 10.9 K/UL (4.8-10.8)
[2016-11-01 07:23] LABS: ALANINE AMINOTRANSFERASE 13 U/L (3-41); ALBUMIN/GLOBULIN RATIO 0.6 (1.0-2.7); ANION GAP 17 (5-15); ASPARTATE AMINO TRANSFERASE 36 U/L (5-40); CALCIUM 7.7 mg/dL (8.6-10.2); CARBON DIOXIDE 20 mEQ/L (20-30); CHLORIDE 104 mEQ/L (98-107); CREATININE 0.6 mg/dL (0.7-1.2); GLOMERULAR FILTRATION RATE > 60 mL/min (>60); HEMOLYSIS 3; POTASSIUM 3.7 mEQ/L (3.4-4.9); SODIUM 141 mEQ/L (135-145); TOTAL PROTEIN 5.2 g/dL (6.6-8.7)
[2016-11-01 07:55] LABS: BILIRUBIN,DIRECT 0.6 mg/dL (0.1-0.3)
--- NOTE | 2016-11-01 08:25 | General Progress Note ---
Assessment/Plan Problem List: (1) DKA (diabetic ketoacidoses) ICD Codes: E13.10 - Other specified diabetes mellitus with ketoacidosis without coma SNOMED: 34570217, 416425336 (2) Sepsis ICD Codes: A41.9 - Sepsis, unspecified organism SNOMED: 99259751 (3) Hypotension ICD Codes: I95.9 - Hypotension, unspecified SNOMED: 28591699 (4) UTI (urinary tract infection) ICD Codes: N39.0 - Urinary tract infection, site not specified SNOMED: 16747071 Qualifiers: Qualified Codes: N30.00 - Acute cystitis without hematuria Status: stable, progressing Assessment/Plan decrease ivf follow up abd chandu ct abd ordered abx adjusted monitor bs check iron panel and stool ob mayt need transfusion monitor labs pain rx and antiemetics Subjective ROS Limited/Unobtainable: No Constitutional: Reports: malaise, weakness HEENT: Reports: no symptoms Cardiovascular: Reports: no symptoms Respiratory: Reports: no symptoms Gastrointestinal/Abdominal: Reports: abdominal pain, poor appetite, poor fluid intake Genitourinary: Reports: no symptoms Neurologic/Psychiatric: Reports: no symptoms Endocrine: Reports: no symptoms Hematologic/Lymphatic: Reports: anemia Allergies: Coded Allergies: ASPIRIN (Verified Allergy, Unknown, throws up, 10/28/16) All Systems: reviewed and negative except above Subjective feeling better. bs better controlled. decreasing h/h noted. denies bleeding Objective Last 24 Hour Vital Signs Date Time Temp Pulse Resp B/P Pulse Ox O2 Delivery O2 Flow Rate FiO2 11/01/16 04:14 99.3 96 20 114/57 93 Room Air 11/01/16 00:07 98.1 80 18 86/54 93 Room Air 10/31/16 20:06 97.5 83 18 117/72 94 Room Air 10/31/16 17:08 122/73 10/31/16 16:22 97.7 84 19 90/62 97 Room Air 10/31/16 12:31 96.8 83 20 105/68 99 Room Air 10/31/16 09:00 83 94/55 10/31/16 09:00 83 118/67 10/31/16 08:25 98.1 83 18 94/55 98 Room Air Intake and Output 10/31/16 11/01/16 19:00 07:00 Intake Total 1115.0 ml 560.0 ml Balance 1115.0 ml 560.0 ml Intake Oral 600 ml IV Total 515.0 ml 560.0 ml # Voids 2 5 Laboratory Tests 10/31/16 09:50: White Blood Count 12.1H, Red Blood Count 2.83L, Hemoglobin 8.8L, Hematocrit 27.2L, Mean Corpuscular Volume 96, Mean Corpuscular Hemoglobin 31.0, Mean Corpuscular Hemoglobin Concent 32.3, Red Cell Distribution Width 12.8, Platelet Count 173, Mean Platelet Volume 9.2, Neutrophils (%) (Auto) 71.2, Lymphocytes (% ) (Auto) 19.0L, Monocytes (%) (Auto) 8.9, Eosinophils (%) (Auto) 0.2, Basophils (%) (Auto) 0.6, Sodium Level 137, Potassium Level 3.8, Chloride Level 103, Carbon Dioxide Level 20, Anion Gap 14, Blood Urea Nitrogen 3L, Creatinine 0.5L, Estimat Glomerular Filtration Rate > 60, Glucose Level 165H, Calcium Level 7.9L , Phosphorus Level 1.4L, Magnesium Level 1.4L, Total Bilirubin 1.6H, Direct Bilirubin 0.6H, Aspartate Amino Transf (AST/SGOT) 37, Alanine Aminotransferase ( ALT/SGPT) 13, Alkaline Phosphatase 68, Total Protein 5.3L, Albumin 2.0L, Globulin 3.3, Albumin/Globulin Ratio 0.6L 11/01/16 05:10: White Blood Count 10.9H, Red Blood Count 2.69L, Hemoglobin 8.3L, Hematocrit 25.7L, Mean Corpuscular Volume 95, Mean Corpuscular Hemoglobin 30.7, Mean Corpuscular Hemoglobin Concent 32.3, Red Cell Distribution Width 13.8, Platelet Count 172, Mean Platelet Volume 8.3, Neutrophils (%) (Auto) 71.9, Lymphocytes (% ) (Auto) 19.1L, Monocytes (%) (Auto) 8.1, Eosinophils (%) (Auto) 0.3, Basophils (%) (Auto) 0.5, Sodium Level 141, Potassium Level 3.7, Chloride Level 104, Carbon Dioxide Level 20, Anion Gap 17H, Blood Urea Nitrogen 3L, Creatinine 0.6L , Estimat Glomerular Filtration Rate > 60, Glucose Level 104, Calcium Level 7.7L , Total Bilirubin 1.5H, Direct Bilirubin 0.6H, Aspartate Amino Transf (AST/SGOT ) 36, Alanine Aminotransferase (ALT/SGPT) 13, Alkaline Phosphatase 90, Total Protein 5.2L, Albumin 2.0L, Globulin 3.2, Albumin/Globulin Ratio 0.6L Height (Feet): 5 Height (Inches): 9.00 Weight (Pounds): 140 Objective General Appearance: WD/WN, alert Neck: supple Cardiovascular: regular rhythm Respiratory/Chest: normal breath sounds Abdomen: normal bowel sounds, non tender, soft, no organomegaly Edema: no edema noted Arm (L), no edema noted Arm (R), no edema noted Leg (L), no edema noted Leg (R), no edema noted Pedal (L), no edema noted Pedal (R), no edema noted Generalized ASHLEY MERA November 01, 2016 08:25
[2016-11-01] MEDS: Phospha 250 Neutral tab ORAL SCH ×2 (08:39→17:06)
[2016-11-01] MEDS: Fluconazole 100mg tab ORAL SCH (08:39)
[2016-11-01] MEDS: Cosopt Opth Soln 10 mL Btl BOTH EYES SCH ×2 (08:39→17:06)
[2016-11-01] MEDS: Levemir Flexpen SUBQ SCH ×2 (08:42→21:00)
[2016-11-01 09:04] LABS: HEMOLYSIS 1; IRON 54 ug/dL (59-158); TOTAL IRON BINDING CAPACITY 122 ug/dL (250-400)
--- NOTE | 2016-11-01 09:32 | Diagnostic Imaging Report ---
Indication: Abdominal pain Technique: Continuous helical transaxial imaging of the abdomen and pelvis was obtained from the lung bases to the pubic symphysis. No intravenous contrast was administered. Coronal 2-D reformats were also obtained. Total Dose length Product (DLP): [address] Dose Index Volume (CTDIvol): 16 mGy Comparison: none Findings: Mild dependent basilar atelectasis demonstrated. Trace pneumobilia is present within the common bile duct. Cholecystectomy noted. Small hiatal hernia is present. At the inferior margin of the liver there is a mild soft tissue stranding of fat involving anterior pararenal space probably secondary to acute diverticulitis involving the upper part of the ascending colon. There are diverticula and probable wall thickening. 3 x 1.6 cm ovoid nodule is noted at the anterior pararenal space fascia in the area of inflammation. This may be a lymph node. Attenuation is soft tissue level which argues against this representing a fluid collection. Over no contrast was given. Arterial vascular calcifications are present. There is no free air free fluid identified. No evidence of bowel obstruction. No hydronephrosis or renal stones are identified. There is narrowing of intervertebral discs and accompanying endplate osteophyte formation. Hypertrophied facet joints also demonstrated. Impression: Small amount of inflammation in the right side of the abdomen probably secondary to mild acute diverticulitis. 3 x 1.6 cm ovoid nodular density lateral to the right kidney associated with the anterior pararenal space in the area of inflammation. Etiology is not clear. This may be a small lymph node. Followup is recommended. Atherosclerotic vascular disease Status post cholecystectomy Pneumobilia Hiatal hernia Mild posterior basilar atelectasis Spondylosis The CT scanner at [facility] is accredited by the [employer] and the scans are performed using protocols designed to limit radiation exposure to as low as reasonably achievable to attain images of sufficient resolution adequate for diagnostic evaluation.
[2016-11-01] MEDS ORDERED: NS 275ml ONE ×2 (10:05→16:20)
[2016-11-01] MEDS: NS w/KCl 20mEq 1,000 ML IV SCH ×2 (10:40→17:11)
--- NOTE | 2016-11-01 10:53 | Diagnostic Imaging Report ---
Indication:Abdominal pain Technique: Grayscale and duplex Doppler imaging of the abdomen performed. Comparison: None Findings: The liver is echogenic. Gallbladder is absent. The demonstrated part of the pancreas, aorta and IVC, both kidneys, spleen appear unremarkable. There is no biliary ductal dilatation identified. CBD is 4 mm. Doppler evaluation of the main portal vein shows patency. There is no ascites. No hydronephrosis seen. Impression: Fatty liver Postcholecystectomy
[2016-11-01] MEDS ORDERED: Tubing IV Secondary IV ONE (16:20)
[2016-11-01] MEDS: Xarelto 10mg tab ORAL SCH (17:06)
[2016-11-01] MEDS ORDERED: HYDROmorphone 1mg/ml Carpuject IVP ONE (20:30)
--- NOTE | 2016-11-01 21:28 | Progress Note ---
DATE: 10/31/2016 CARDIOLOGY PROGRESS NOTE SUBJECTIVE: The patient still has abdominal and groin pain. His appetite is poor. He is nauseated, but has not been vomiting. He denies chest pain or shortness of breath. OBJECTIVE: VITAL SIGNS: Blood pressure 112/59, pulse 85, respiratory rate 18 and afebrile. NECK: Supple. LUNGS: Clear. HEART: Regular rhythm and rate. Normal S1 and S2 with a fourth heart sound. ABDOMEN: Soft. Mildly tender in the suprapubic region. No guarding, rebound or palpable masses. EXTREMITIES: Without edema. LABORATORY AND DIAGNOSTIC DATA: White count 12.1 and hemoglobin 8.8. Magnesium 1.4. Phosphorus 1.4. BUN 3, creatinine 0.5 and potassium 3.8. Albumin 2.0. Urine culture has Marla. IMPRESSION: 1. Fungal cystitis. 2. Sepsis. 3. Hypomagnesemia. 4. Hypophosphatemia. 5. Severe protein-calorie malnutrition. 6. Ischemic cardiomyopathy. 7. Paroxysmal atrial fibrillation. 8. History of deep vein thrombosis. 9. Acute myocardial ischemia, resolved. PLAN: 1. Antibiotics and antifungal therapy. 2. Cautious hydration. 3. Hold antihypertensive. 4. Maintain cardioembolic prophylaxis with rivaroxaban as well as assess for DVT treatment. 5. IV magnesium and phosphorus replacement has been ordered. Dustin Henao M.D. DR: FABRICIO JOB#: [id number] CC:
--- NOTE | 2016-11-01 21:48 | Progress Note ---
DATE: 11/01/2016 CARDIOLOGY PROGRESS NOTE SUBJECTIVE: The patient has slightly decreased abdominal pain. Feeling better. Appetite is fair. OBJECTIVE: VITAL SIGNS: Blood pressure is still tenuous 86/54 to 114/57, heart rate 96, respiratory rate 20, and temperature max 99.3 degrees. HEENT: Oropharynx clear with no thrush. NECK: Supple. LUNGS: Clear. CARDIAC: Regular rhythm and rate. Normal S1 and S2 with occasional ectopic beats. ABDOMEN: Soft. Mild suprapubic tenderness. EXTREMITIES: No edema. LABORATORY AND DIAGNOSTIC DATA: Potassium 3.7, BUN 3 and creatinine 0.6. Iron panel revealed chronic disease picture. Albumin 2.0. White count 10.9 and hemoglobin 8.3. IMPRESSION: 1. Fungal cystitis. 2. Sepsis. 3. Progressive anemia of chronic disease. 4. Severe protein-calorie malnutrition. 5. Hypomagnesemia and hypophosphatemia, on replacement therapy. 6. History of deep vein thrombosis and paroxysmal atrial fibrillation on anticoagulation. PLAN: Antifungal therapy. Hydration. Hold antihypertensive. Insulin coverage. May need transfusion. Followup hemoglobin level. Continue replacement of electrolytes. Remains with a guarded prognosis in serious condition. Dustin Henao M.D. DR: FABRICIO JOB#: [id number] CC:
[2016-11-02 04:41] VITALS: BP 108/75
[2016-11-02] MEDS: NovoLOG Insulin Flexpen SUBQ SCH ×4 (06:38→21:03)
[2016-11-02] MEDS: Brimonidine 0.2% Opth Sol BOTH EYES SCH ×3 (06:39→21:04)
[2016-11-02 07:57] LABS: BASOPHILS % (AUTO) 0.5 % (0.0-2.0); EOSINOPHILS % (AUTO) 0.6 % (0.0-3.0); LYMPHOCYTES % (AUTO) 21.6 % (20.0-45.0); MEAN CORPUSCULAR HEMOGLOBIN 30.1 PG (27.0-31.0); MEAN CORPUSCULAR HGB CONC 31.2 G/DL (32.0-36.0); MEAN CORPUSCULAR VOLUME 97 FL (80-99); MEAN PLATELET VOLUME 7.8 FL (6.5-10.1); MONOCYTES % (AUTO) 10.3 % (1.0-10.0); NEUTROPHILS % (AUTO) 67.1 % (45.0-75.0); PLATELET COUNT 194 K/UL (150-450); RED BLOOD COUNT 2.92 M/UL (4.70-6.10); RED CELL DISTRIBUTION WIDTH 13.6 % (11.6-14.8); WHITE BLOOD COUNT 10.1 K/UL (4.8-10.8)
--- NOTE | 2016-11-02 07:59 | General Progress Note ---
Assessment/Plan Problem List: (1) DKA (diabetic ketoacidoses) ICD Codes: E13.10 - Other specified diabetes mellitus with ketoacidosis without coma SNOMED: 43861137, [id number] (2) Sepsis ICD Codes: A41.9 - Sepsis, unspecified organism SNOMED: 24211884 (3) Hypotension ICD Codes: I95.9 - Hypotension, unspecified SNOMED: 43134103 (4) UTI (urinary tract infection) ICD Codes: N39.0 - Urinary tract infection, site not specified SNOMED: 65005475 Qualifiers: Qualified Codes: N30.00 - Acute cystitis without hematuria Assessment/Plan decrease ivf iv abx for acute diverticulitis monitor bs check iron panel and stool ob monitor labs pain rx and antiemetics downgrade to soft or clears if pain worsens Subjective ROS Limited/Unobtainable: No Constitutional: Reports: malaise, weakness HEENT: Reports: no symptoms Cardiovascular: Reports: no symptoms Respiratory: Reports: no symptoms Gastrointestinal/Abdominal: Reports: abdominal pain Genitourinary: Reports: no symptoms Neurologic/Psychiatric: Reports: no symptoms Endocrine: Reports: no symptoms Hematologic/Lymphatic: Reports: no symptoms Allergies: Coded Allergies: ASPIRIN (Verified Allergy, Unknown, throws up, 10/28/16) All Systems: reviewed and negative except above Subjective had worsening abd pain. pain meds increased last night. ct results this morning show acute diverticulitis Objective Last 24 Hour Vital Signs Date Time Temp Pulse Resp B/P Pulse Ox O2 Delivery O2 Flow Rate FiO2 11/02/16 04:41 96.3 90 20 108/75 95 Room Air 11/01/16 23:56 97.9 85 18 115/74 Room Air 11/01/16 20:00 96.0 87 15 116/62 94 Room Air 11/01/16 16:00 98.2 75 18 103/62 95 Room Air 11/01/16 12:00 97.9 80 20 106/64 92 Room Air 11/01/16 08:46 95 107/59 11/01/16 08:00 98.4 95 18 107/59 96 Room Air Intake and Output 11/01/16 11/02/16 19:00 07:00 Intake Total 1930.0 ml Balance 1930.0 ml Intake Oral 1000 ml IV Total 930.0 ml # Voids 3 10 # Bowel Movements 3 Laboratory Tests 11/01/16 10:30: Stool Occult Blood Negative 11/02/16 05:20: White Blood Count [Pending], Red Blood Count [Pending], Hemoglobin [Pending], Hematocrit [Pending], Mean Corpuscular Volume [Pending], Mean Corpuscular Hemoglobin [Pending], Mean Corpuscular Hemoglobin Concent [Pending], Red Cell Distribution Width [Pending], Platelet Count [Pending], Mean Platelet Volume [ Pending], Neutrophils (%) (Auto) [Pending], Lymphocytes (%) (Auto) [Pending], Monocytes (%) (Auto) [Pending], Eosinophils (%) (Auto) [Pending], Basophils (%) (Auto) [Pending], Sodium Level [Pending], Potassium Level [Pending], Chloride Level [Pending], Carbon Dioxide Level [Pending], Blood Urea Nitrogen [Pending], Creatinine [Pending], Estimat Glomerular Filtration Rate [Pending], Glucose Level [Pending], Calcium Level [Pending], Total Bilirubin [Pending], Aspartate Amino Transf (AST/SGOT) [Pending], Alanine Aminotransferase (ALT/SGPT) [Pending] , Alkaline Phosphatase [Pending], Total Protein [Pending], Albumin [Pending], Globulin [Pending] Height (Feet): 5 Height (Inches): 9.00 Weight (Pounds): 140 Objective General Appearance: WD/WN, alert Neck: supple Cardiovascular: regular rhythm Respiratory/Chest: normal breath sounds Abdomen: normal bowel sounds, tender LLQ, soft, no organomegaly Edema: no edema noted Arm (L), no edema noted Arm (R), no edema noted Leg (L), no edema noted Leg (R), no edema noted Pedal (L), no edema noted Pedal (R), no edema noted Generalized ASHLEY MERA November 02, 2016 07:59
[2016-11-02 08:10] LABS: ALANINE AMINOTRANSFERASE 12 U/L (3-41); ALBUMIN/GLOBULIN RATIO 0.5 (1.0-2.7); ANION GAP 14 (5-15); ASPARTATE AMINO TRANSFERASE 33 U/L (5-40); CALCIUM 7.9 mg/dL (8.6-10.2); CARBON DIOXIDE 21 mEQ/L (20-30); CHLORIDE 104 mEQ/L (98-107); CREATININE 0.5 mg/dL (0.7-1.2); GLOMERULAR FILTRATION RATE > 60 mL/min (>60); HEMOLYSIS 3; POTASSIUM 3.5 mEQ/L (3.4-4.9); SODIUM 139 mEQ/L (135-145); TOTAL PROTEIN 5.6 g/dL (6.6-8.7)
[2016-11-02 08:15] VITALS: BP 90/62
[2016-11-02 08:43] LABS: BILIRUBIN,DIRECT 0.5 mg/dL (0.1-0.3)
--- NOTE | 2016-11-02 08:56 | Cardiology Report ---
APPROVED REPORT EXAM: Two-dimensional and M-mode echocardiogram with Doppler and color Doppler. INDICATION CVA/TIA M-Mode DIMENSIONS IVSd1.3 (0.7-1.1cm)Left Atrium (MM)4.1 (1.6-4.0cm) LVDd5.6 (3.5-5.6cm)Aortic Root4.6 (2.0-3.7cm) PWd1.3 (0.7-1.1cm)Aortic Cusp Exc.2.2 (1.5-2.0cm) LVDs4.4 (2.5-4.0cm) PWs1.7 cm Normal left ventricular chamber size. Study quality precludes accurate assessment of regional wall motion. Left ventricular ejection fraction estimated to be 55 %. Mild left ventricular hypertrophy. Anterior Echo-free space, may be due to pericardial fat or effusion. Mild bi-trial enlargement. Right ventricular chamber size is within normal limits. Focal aortic valve sclerosis with adequate cusp excursion. Aortic root dilatation. Thickened mitral valve leaflets with normal excursion. Mitral annulus and aortic root calcification. Pulmonic valve not well visualized. Normal tricuspid valve structure. IVC at normal size with physiologic collapse. A color flow and spectral Doppler study was performed and revealed: Trace mitral regurgitation. Mitral diastolic velocities suggest reduced left ventricular relaxation c/w mild LV diastolic dysfunction (Grade I). Mild tricuspid regurgitation. Tricuspid systolic velocities suggests peak right ventricular systolic pressure of 46 mmHg, consistent with borderline moderate pulmonary hypertension.
[2016-11-02] MEDS: Cosopt Opth Soln 10 mL Btl BOTH EYES SCH ×2 (09:41→17:12)
[2016-11-02] MEDS: metroNIDAZOLE 500mg 100 ML IVPB SCH ×2 (09:41→17:10)
[2016-11-02] MEDS: Phospha 250 Neutral tab ORAL SCH ×2 (09:42→17:12)
[2016-11-02] MEDS: Fluconazole 100mg tab ORAL SCH (09:42)
[2016-11-02] MEDS: Levemir Flexpen SUBQ SCH ×2 (09:43→21:04)
[2016-11-02] MEDS: Piperacillin/Tazobactam 3.375 GM in D5W 110 ML IVPB SCH ×2 (10:52→18:23)
[2016-11-02 11:47] VITALS: BP 115/66
[2016-11-02] MEDS ORDERED: DiphenhydrAMINE 50mg/ml Inj IVP PRN (13:30)
[2016-11-02] MEDS: NS w/KCl 20mEq 1,000 ML IV SCH (13:53)
[2016-11-02 16:15] VITALS: BP 99/64
[2016-11-02] MEDS: Xarelto 10mg tab ORAL SCH (17:07)
[2016-11-02 20:00] VITALS: BP 107/64
[2016-11-02 23:50] VITALS: BP 115/65
[2016-11-03] MEDS: metroNIDAZOLE 500mg 100 ML IVPB SCH ×2 (00:32→09:15)
[2016-11-03] MEDS: Piperacillin/Tazobactam 3.375 GM in D5W 110 ML IVPB SCH ×2 (01:25→10:38)
[2016-11-03] MEDS: NS w/KCl 20mEq 1,000 ML IV SCH (02:40)
[2016-11-03 03:55] VITALS: BP 114/69
[2016-11-03] MEDS: Brimonidine 0.2% Opth Sol BOTH EYES SCH (06:10)
--- NOTE | 2016-11-03 06:29 | Progress Note ---
DATE: 11/02/2016 CARDIOLOGY PROGRESS NOTE SUBJECTIVE: The patient continues to have abdominal pain worse last evening. Repeat CAT scan noted for acute diverticulitis. No chest pain. No shortness of breath. OBJECTIVE: VITAL SIGNS: Blood pressure 108/75, pulse 90, respirations 20, and afebrile. NECK: Supple. LUNGS: Clear. CARDIAC: Regular. Normal S1 and S2. ABDOMEN: Slightly distended, but soft. Tenderness in the lower quadrants bilaterally. EXTREMITIES: Without edema. LABORATORY DATA: White count 10 and hemoglobin 8.8. Potassium 3.5, BUN 3, and creatinine 0.5. Albumin is 2.0. IMPRESSION: 1. Acute diverticulitis. 2. Fungal cystitis. 3. Diabetic ketoacidosis. 4. Hypomagnesemia. 5. Severe protein-calorie malnutrition 6. Recovered shock due to sepsis and hypovolemia. PLAN: 1. Recheck laboratory studies. 2. Replace accordingly. 3. Antimicrobials. 4. Volume support as needed. 5. Holding all antihypertensives and cardiovascular drugs. 6. Protein supplement. 7. DVT prophylaxis. 8. Remains high risk. Dustin Henao M.D. DR: CINDY JOB#: [id number] CC:
[2016-11-03] MEDS: NovoLOG Insulin Flexpen SUBQ SCH ×2 (06:30→12:06)
[2016-11-03 07:18] LABS: BASOPHILS % (AUTO) 0.4 % (0.0-2.0); EOSINOPHILS % (AUTO) 0.8 % (0.0-3.0); LYMPHOCYTES % (AUTO) 24.5 % (20.0-45.0); MEAN CORPUSCULAR HEMOGLOBIN 30.2 PG (27.0-31.0); MEAN CORPUSCULAR VOLUME 97 FL (80-99); MEAN PLATELET VOLUME 8.7 FL (6.5-10.1); MONOCYTES % (AUTO) 10.5 % (1.0-10.0); NEUTROPHILS % (AUTO) 63.9 % (45.0-75.0); PLATELET COUNT 220 K/UL (150-450); RED BLOOD COUNT 2.89 M/UL (4.70-6.10); RED CELL DISTRIBUTION WIDTH 15.4 % (11.6-14.8); WHITE BLOOD COUNT 10.6 K/UL (4.8-10.8)
[2016-11-03 07:32] LABS: ALANINE AMINOTRANSFERASE 12 U/L (3-41); ALBUMIN/GLOBULIN RATIO 0.5 (1.0-2.7); ANION GAP 17 (5-15); ASPARTATE AMINO TRANSFERASE 32 U/L (5-40); CALCIUM 8.3 mg/dL (8.6-10.2); CARBON DIOXIDE 21 mEQ/L (20-30); CHLORIDE 103 mEQ/L (98-107); CREATININE 0.7 mg/dL (0.7-1.2); GLOMERULAR FILTRATION RATE > 60 mL/min (>60); HEMOLYSIS 3; MAGNESIUM 1.6 mg/dL (1.7-2.5); POTASSIUM 4.2 mEQ/L (3.4-4.9); SODIUM 141 mEQ/L (135-145); TOTAL PROTEIN 6.2 g/dL (6.6-8.7)
[2016-11-03] MEDS ORDERED: CIPRO500 MG PO (07:34)
[2016-11-03] MEDS ORDERED: FLAGYL500 MG ORAL (07:34)
[2016-11-03] MEDS ORDERED: TOUJEO SOL300 UNIT/1 SQ (07:34)
[2016-11-03 07:51] LABS: BILIRUBIN,DIRECT 0.4 mg/dL (0.1-0.3)
[2016-11-03 08:17] VITALS: BP 115/70
[2016-11-03] MEDS: Phospha 250 Neutral tab ORAL SCH (09:03)
[2016-11-03] MEDS: Fluconazole 100mg tab ORAL SCH (09:03)
[2016-11-03] MEDS: Cosopt Opth Soln 10 mL Btl BOTH EYES SCH (09:05)
[2016-11-03] MEDS: Levemir Flexpen SUBQ SCH (09:55)
--- NOTE | 2016-11-03 11:18 | Discharge Summary ---
DATE OF ADMISSION: 10/28/2016 DATE OF DISCHARGE: 11/03/2016 ADMISSION DIAGNOSES: 1. Diabetes out of control. 2. Acute renal failure. 3. Hyponatremia. 4. Sepsis. 5. Urinary tract infection. 6. History of deep venous thrombosis. 7. Diverticulitis. DISCHARGE DIAGNOSES: 1. Diabetes out of control. 2. Acute renal failure. 3. Hyponatremia. 4. Sepsis. 5. Urinary tract infection. 6. History of deep venous thrombosis. 7. Diverticulitis. HOSPITAL COURSE: The patient is a pleasant male admitted with diabetes out of control. Developed possible early DKA. The patient also was diagnosed with urinary tract infection. He was aggressively hydrated and regimen was adjusted. He had slow improvement. He had a CAT scan the abdomen because of complaints of abdominal pain, which showed diverticulitis. The patient was treated with additional IV antibiotics for diverticulitis. On discharge, he is doing well. He will be discharged on insulin and antibiotics. DISCHARGE MEDICATIONS: Please see discharge list for discharge medications. DIET: Diabetic diet. ACTIVITY: Ad-conrado. FOLLOWUP: The patient to follow up in one to two weeks in the office. Erick Rose M.D. DR: Karthik JOB#: [id number] CC:
[2016-11-03 11:47] VITALS: BP 102/59
[2016-11-03] MEDS ORDERED: Tubing IV Secondary IV ONE (14:13)
[2016-11-03] MEDS ORDERED: D5 1/2NS 1000ml IV ONE (14:13)
--- NOTE | 2016-11-04 03:49 | Progress Note ---
DATE: 11/03/2016 CARDIOLOGY PROGRESS NOTE: SUBJECTIVE: The patient is tolerating diet. Abdominal pain has diminished. He denies chest pain or shortness of breath. OBJECTIVE: VITAL SIGNS: Blood pressure is 102/59, heart rate 81, respiratory rate 11, afebrile, and room air oxygen saturation 96%. NECK: Supple. LUNGS: Clear. CARDIAC: Regular. Normal S1 and S2. ABDOMEN: Soft. No guarding or rebound. No edema. IMPRESSION: 1. Diverticulitis. 2. Sepsis. 3. Fungal cystitis. 4. Anemia. 5. Severe protein-calorie malnutrition. 6. Acute myocardial ischemia. 7. Ischemic heart disease. 8. Shock. 9. Hypovolemia, improved. Conditions improved adequately for outpatient followup and completion of care. Discharge medication regimen reviewed. This discussed with Dr. Rose as well as the patient. Outpatient cardiovascular followup scheduled. Dustin Henao M.D. DR: SARAY/nereida JOB#: [id number] CC:
== END 2016-11-03 14:14 | disposition home health service (06) | DRG 420 ==
LOC: EMR 13:25 → 2E 13:40 → EDBEDREQ 16:57 → 4W 10-31 07:05
DX: E13.10 Other specified diabetes mellitus with ketoacidosis without coma (principal); R57.9 Shock, unspecified; E43 Unspecified severe protein-calorie malnutrition; A41.9 Sepsis, unspecified organism; G92 Toxic encephalopathy; G93.41 Metabolic encephalopathy; N17.9 Acute kidney failure, unspecified; I95.9 Hypotension, unspecified; N39.0 Urinary tract infection, site not specified; K57.92 Diverticulitis of intestine, part unspecified, without perforation or abscess without bleeding; E86.0 Dehydration; I10 Essential (primary) hypertension; Z86.73 Personal history of transient ischemic attack (TIA), and cerebral infarction without residual deficits; Z68.20 Body mass index [BMI] 20.0-20.9, adult; Z86.718 Personal history of other venous thrombosis and embolism; I48.0 Paroxysmal atrial fibrillation; H54.41 Blindness, right eye, normal vision left eye; Z79.4 Long term (current) use of insulin; I73.9 Peripheral vascular disease, unspecified; E87.6 Hypokalemia; E86.1 Hypovolemia; E83.42 Hypomagnesemia; I25.5 Ischemic cardiomyopathy; I51.3 Intracardiac thrombosis, not elsewhere classified; Z88.6 Allergy status to analgesic agent
CPT/HCPCS: 36415; 71010; 74176; 76700; 80053; 81003; 82009; 82248; 82270; 82962; 83036; 83540; 83550; 83690; 83735; 83880; 84100; 84484; 85025; 85610; 85730; 87040; 87086; 93005; 93306; 93880; C9399; J1815; J2405; J8499; S5561

== ENCOUNTER 2017-08-18 14:12 | Emergency (ER) | payer MEDICARE, MEDICAID ==
[~2017-08-18] VITALS: Ht 170.2 cm; Wt 68.0 kg
[~2017-08-18 14:12] MED LIST: AMLODIPINE BESY10 MG ORAL; BRIMONIDINE TART5 ML; BRIMONIDINE TART5 ML BOTH EYES; CIPRO500 MG PO; FLAGYL500 MG ORAL; HUMULIN R100 UNIT/1 SUBQ; LATANOPROST2.5 ML; LATANOPROST2.5 ML LEFT EYE; LORAZEPAM1 MG ORAL; METFORMIN HCL500 M1 ORAL; OMEPRAZOLE20 M2 ORAL; QVAR7.3 GM INH; TAMSULOSIN HCL0.4 MG ORAL; TOUJEO SOL300 UNIT/1 SQ; TRUSOPT10 ML; TRUSOPT10 ML BOTH EYES; VITAMIN D250000 UNI1 ORAL; XALATAN2.5 ML LEFT EYE; XARELTO10 MG ORAL; XARELTO20 MG ORAL; ZOCOR20 M1 ORAL; ZOLPIDEM TARTRA10 MG ORAL
[2017-08-18] MEDS ORDERED: Morphine Sulfate 2mg/ml Inj IVP ONE (15:15)
--- NOTE | 2017-08-18 15:24 | Emergency Room Report ---
History of Present Illness General Chief Complaint: Multiple Trauma/Fall Source: Patient Present Illness HPI 71YOM with Left flank pain radiating to abdomen, intermittent for 5 days since traumatic fall outside 5 days prior. Patient states he slipped and fell outside on driveway, and on left lower back. Had difficulty standing at the time. Denies hitting head, loss of consciousness. States pain worse in the morning. Feels tightening in the upper and lower abdomen. 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 Review of Systems All Other Systems: negative except mentioned in HPI Physical Exam Vital Signs Date Time Temp Pulse Resp B/P (MAP) Pulse Ox O2 Delivery O2 Flow Rate FiO2 08/18/17 14:33 97.3 94 20 114/79 94 Room Air 97.3 Sp02 EP Interpretation: reviewed, normal General Appearance: normal inspection, well appearing, no apparent distress, alert, GCS 15, non-toxic Head: normocephalic, atraumatic Eyes: bilateral eye PERRL, bilateral eye EOMI ENT: normal ENT inspection, hearing grossly normal, normal pharynx, no angioedema, normal voice, TMs + canals normal, uvula midline, moist mucus membranes Neck: normal inspection, full range of motion, supple, thyroid normal, no meningismus, no bony tend Respiratory: normal inspection, lungs clear, normal breath sounds, no rhonchi, no respiratory distress, no retraction, no accessory muscle use, no wheezing, speaking full sentences, other - Very tender to anterior chest wall/ribs. No palpable deformity., chest symmetrical Cardiovascular #1: regular rate, rhythm, no edema, no JVD, normal capillary refill Gastrointestinal: normal inspection, normal bowel sounds, soft, no mass, no peritonitis, non-distended, no guarding, no hernia, no pulsatile mass, other - Very tender to left sided abdomen with guarding. 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 tested, motor strength/tone normal, cerebellar normal, normal gait, speech normal Psychiatric: normal inspection, judgement/insight normal, mood/affect normal, no suicidal/homicidal ideation, no delusions Skin: normal inspection, normal color, no rash Lymphatic: normal inspection, no adenopathy Medical Decision Making Diagnostic Impression: Primary Impression: Multiple injuries due to trauma Additional Impressions: Fall Qualified Codes: W19.XXXA - Unspecified fall, initial encounter UTI (urinary tract infection) Qualified Codes: N30.01 - Acute cystitis with hematuria ER Course 71YOM with accidental slip and fall 5 days ago TTP to anterior chest wall, abdomen, left back Concern for ?rib fx, intra-abd injury Plan: Labs, CT chest, Abd, pelvis Lactate level UA Analgesia CT chest/abd/pelvis: no acute trauma. ?old rib fractures + cystitis Patient has foul smelling urine. Nitrite positive UTI ? contributing to his abd pain, dysuria Was given Rx for Macrobid, analgesia has PMD - was given copy of CT, labs Recommended close PMD followup ER course: Patient has remained stable during ED stay. Disposition: Patient is to be discharged to home. Prescriptions given are macrobid, tylenol, robaxin Patient is instructed to follow up with their primary care doctor within 5 days. Patient is instructed to follow up with *specialist within 3 days. Strict return precautions discussed with patient such as fever, chills, worsening/severe pain, nausea, vomiting, which may indicate severe illness. Patient verbalizes understanding and agrees with plan. Please note that this Emergency Department Report was dictated using [employer] maker technology software, occasionally this can lead to erroneous entry secondary to interpretation by the dictation equipment Rhythm Strip Diag. Results EP Interpretation: yes Rate: 65 Rhythm: NSR, no PVC's, no ectopy Last Vital Signs Date Time Temp Pulse Resp B/P (MAP) Pulse Ox O2 Delivery O2 Flow Rate FiO2 08/18/17 14:33 97.3 94 20 114/79 94 Room Air 97.3 Status: improved Disposition: HOME, SELF-CARE Scripts Nitrofurantoin Monohyd/M-Cryst* (MACROBID 100 MG*) 100 Mg Capsule 100 MG ORAL EVERY 12 HOURS for 7 Days, #14 CAP Prov: BAN WOOTEN M.D. 08/18/17 Methocarbamol* (ROBAXIN*) 500 Mg Tablet 500 MG PO TID for 7 Days, #30 TAB 0 Refills Prov: BAN WOOTEN M.D. 08/18/17 Acetaminophen (Tylenol) 325 Mg Tablet 650 MG ORAL Q6H Y for For Pain for 7 Days, #30 TAB 0 Refills Prov: BAN WOOTEN M.D. 08/18/17 BAN WOOTEN M.D. Aug 18, 2017 15:24
[2017-08-18 15:30] VITALS: BP 140/77
[2017-08-18 15:57] LABS: BASOPHILS % (AUTO) 0.9 % (0.0-2.0); EOSINOPHILS % (AUTO) 2.2 % (0.0-3.0); HEMATOCRIT 40.2 % (42.0-52.0); HEMOGLOBIN 13.5 G/DL (14.2-18.0); LYMPHOCYTES % (AUTO) 27.8 % (20.0-45.0); MEAN CORPUSCULAR VOLUME 93 FL (80-99); MONOCYTES % (AUTO) 6.6 % (1.0-10.0); NEUTROPHILS % (AUTO) 62.5 % (45.0-75.0); PLATELET COUNT 180 K/UL (150-450); RED BLOOD COUNT 4.33 M/UL (4.70-6.10); RED CELL DISTRIBUTION WIDTH 12.2 % (11.6-14.8); WHITE BLOOD COUNT 9.1 K/UL (4.8-10.8)
[2017-08-18 16:03] LABS: INR 1.6 (0.9-1.1)
[2017-08-18] MEDS ORDERED: LR 1000ml 1,000 ML IV STA (16:20)
[2017-08-18 16:27] LABS: ALANINE AMINOTRANSFERASE 10 U/L (12-78); ALBUMIN 3.5 G/DL (3.4-5.0); ALBUMIN/GLOBULIN RATIO 0.7 (1.0-2.7); ALKALINE PHOSPHATASE 104 U/L (46-116); ASPARTATE AMINO TRANSFERASE 26 U/L (15-37); BILIRUBIN,TOTAL 0.6 MG/DL (0.2-1.0); BLOOD UREA NITROGEN 10 mg/dL (7-18); CARBON DIOXIDE 28 MMOL/L (21-32)
[2017-08-18 16:35] LABS: ANION GAP 10 mmol/L (5-15); CHLORIDE 103 MMOL/L (98-107); POTASSIUM 3.8 MMOL/L (3.5-5.1); SODIUM 141 MMOL/L (136-145)
[2017-08-18 17:00] VITALS: BP 106/75
[2017-08-18] MEDS ORDERED: ROBAXIN500 MG PO (18:03)
[2017-08-18] MEDS ORDERED: NITROFURANTOIN100 M2 ORAL (18:03)
[2017-08-18] MEDS ORDERED: TYLENOL325 MG ORAL (18:03)
[2017-08-18] MEDS ORDERED: Norco 5mg/325mg tab ORAL ONE (18:15)
[2017-08-18 18:18] VITALS: BP 141/72
[2017-08-18 18:19] VITALS: BP 141/72
[2017-08-18 18:38] LABS: APPEARANCE,URINE CLEAR; BILIRUBIN, URINE NEGATIVE (NEGATIVE); GLUCOSE, URINE (UA) NEGATIVE (NEGATIVE); KETONES,URINE NEGATIVE (NEGATIVE); LEUKOCYTE ESTERASE ,URINE 3+ (NEGATIVE); NITRITE,URINE POSITIVE (NEGATIVE); PH,URINE 6 (4.5-8.0); PROTEIN,URINE NEGATIVE (NEGATIVE); UROBILINOGEN,URINE 1 MG/DL (0.0-1.0)
[2017-08-18 18:41] LABS: COLOR,URINE YELLOW
--- NOTE | 2017-08-19 09:09 | Diagnostic Imaging Report ---
Clinical Indication: Pain, status post fall, left-sided pain after sustaining a slip and fall on Wednesday Technique: No oral contrast utilized, per emergency room physician request IV administration nonionic contrast. Multiphasic spiral acquisitions obtained through the chest, abdomen and pelvis. Multiplanar reconstructions were generated. Total dose length product 1213.86 mGycm. CTDIvol(s) 14.04,14.36 mGy. Dose reduction achieved using automated exposure control Comparison: 10/31/[address] No comparison chest CT Findings: CHEST: There are completely or nearly completely healed fractures of the right fourth through seventh ribs. No acute fracture demonstrated. There is no evidence of pneumothorax or pulmonary contusion. There are acuity indeterminate compression fractures of the T3, T4, T5, and T6 vertebral bodies. No other evidence of fracture. There are reticular and linear opacities at both lung bases. There is pulmonary hyperinflation bilaterally, predominantly in the upper lobes. Small bullae are seen in the inferior right upper lobe and in the right middle lobe. No definite infiltrates, effusions, or congestion. The main pulmonary artery is somewhat ectatic, measuring 37 mm in diameter. The heart size is upper limits normal. No pericardial effusion. There are extensive coronary artery calcifications. No mediastinal or hilar mass or adenopathy. The included portions of the thyroid are unremarkable. No axillary or chest wall mass or adenopathy. No evidence of chest wall contusion. ABDOMEN AND PELVIS: There are degenerative changes of the lumbar spine. There is no evidence of significant soft tissue contusion or hematoma. No definite abdominal or pelvic fracture demonstrated. The gallbladder is surgically absent. The liver is unremarkable. There is pneumobilia which is also evident previously, somewhat more extensive currently. There is a duodenal diverticulum. The pancreas, spleen, adrenals, kidneys are unremarkable. No retroperitoneal or mesenteric mass or adenopathy. No pelvic mass or adenopathy. There is colonic diverticulosis. No evidence of diverticulitis. The appendix is normal. No small bowel distention. No free or loculated intraperitoneal air or fluid. No evidence of intra-abdominal hematoma. The distal esophagus is unremarkable. There is possible wall thickening of the duodenum. Impression: No evidence of acute posttraumatic abnormality. No evidence of pneumothorax, pulmonary contusion, solid organ or osseous injury Stress multiple vertebral body compression fractures. Acuity indeterminate the suspect old. Consider MRI for better characterization if clinically relevant Pulmonary hyperinflation and right-sided bullous changes, likely COPD. Basilar parenchymal opacities may reflect atelectatic lung, scarring, less likely consolidation Ectatic main pulmonary artery, could indicate pulmonary arterial hypertension Mostly healed right rib fractures, not acute, but new since prior study of 10/31/2016 Possible duodenal wall thickening, could indicate diverticulitis or peptic ulcer disease. Correlate with clinical findings. Pneumobilia, also previously described, presumably related to prior biliary intervention Other findings as noted, including colonic diverticulosis, prior cholecystectomy, duodenal diverticulum This agrees with the preliminary interpretation provided overnight by [facility]. The CT scanner at [facility] is accredited by the [employer] and the scans are performed using protocols designed to limit radiation exposure to as low as reasonably achievable to attain images of sufficient resolution adequate for diagnostic evaluation.
== END 2017-08-18 18:19 | disposition home or self-care (01) ==
LOC: EMR 16:57
DX: S29.8XXA Other specified injuries of thorax, initial encounter (principal); S39.81XA Other specified injuries of abdomen, initial encounter; W01.0XXA Fall on same level from slipping, tripping and stumbling without subsequent striking against object, initial encounter; Y92.008 Other place in unspecified non-institutional (private) residence as the place of occurrence of the external cause; N39.0 Urinary tract infection, site not specified; E11.9 Type 2 diabetes mellitus without complications; I10 Essential (primary) hypertension; Z88.6 Allergy status to analgesic agent; Z85.46 Personal history of malignant neoplasm of prostate; I69.398 Other sequelae of cerebral infarction; H54.40 Blindness, one eye, unspecified eye
CPT/HCPCS: 36415; 71260; 74177; 80053; 81003; 83605; 83690; 85025; 85610; 86850; 86900; 86901; 87086; 87181; 96361; 96374; 96375; 99284; J2270; J2405; Q9967

== ENCOUNTER 2019-06-08 11:14 | Outpatient (CLI) | payer MEDICARE, MEDICAID ==
[~2019-06-08 11:14] MED LIST changes: +NITROFURANTOIN100 M2 ORAL; +ROBAXIN500 MG PO; +TYLENOL325 MG ORAL
--- NOTE | 2019-06-08 12:09 | Diagnostic Imaging Report ---
Indication: Cough Technique: XRAY Chest 2v Comparison: CT of the chest 08/18/2017 Findings: Heart size within normal limits. The thoracic aorta is again noted to be tortuous and mildly calcified. Emphysematous changes of the lungs noted, most pronounced in the apices. There is subtle asymmetric haziness in the right lower lobe concerning for developing infectious infiltrate given history of cough. There is no pleural effusion or pneumothorax. There is osteopenia with degenerative changes of the spine. Chronic mild compression deformities of the thoracic spine again noted. No acute osseous abnormality. IMPRESSION: Subtle asymmetric hazy opacities in the right lower lobe most concerning for developing infectious infiltrate given history of cough. Clinical correlation and follow-up recommended. Underlying emphysematous disease of the lungs.
== END 2019-06-08 13:14 | disposition home or self-care (01) ==
LOC: RAD 11:14
DX: R05 Cough (principal); J43.9 Emphysema, unspecified
CPT/HCPCS: 71046

== ENCOUNTER → 2020-01-22 | Outpatient (CLI) | payer MEDICARE, MEDICAID | END | disposition home or self-care (01) | LOC: LAB 15:00 | DX: R19.7 Diarrhea, unspecified (principal); R30.0 Dysuria | CPT/HCPCS: 36415; 80053; 81001; 83036; 84443; 85025; 87045; 87086; 87181; 87324 ==